=== PATIENT | male | born 1980 | race Caucasian/White ===

== ENCOUNTER 2021-11-04 09:51 | Emergency (ER) | payer OTHER, SELFPAY ==
[2021-11-04 09:52] VITALS: BP 169/123; PULSE 80; RESP 18; TEMP 35.8; O2SAT 99
[2021-11-04 10:15] LABS: Basophils Percent Auto 0.5 % (0.2-1.2); Eosinophils Absolute Auto 0.7 K/mm3 (0-0.3); Eosinophils Percent Auto 11.6 % (0-4.4); Hematocrit 46.8 % (42.0-52.0); Hemoglobin 16.8 g/dL (14.0-18.0); Immature Granulocyte Absolute 0.02 K/mm3 (0.00-0.031); Immature Granulocyte Percent A 0.3 % (0-0.5); Lymphocytes Percent Auto 23.5 % (18.3-44.2); Mean Corpuscular HGB Conc 35.9 g/dl (32-36); Mean Corpuscular Hemoglobin 33.9 pg (26-34); Mean Corpuscular Volume 94.5 fl (80-100); Mean Platelet Volume 8.8 fl (7.4-10.4); Monocytes Absolute Auto 0.6 K/mm3 (0.1-0.6); Monocytes Percent Auto 9.7 % (2.6-8.5); Neutrophils Absolute Auto 3.3 K/mm3 (1.3-6.7); Neutrophils Percent Auto 54.4 % (45.5-73.1); Platelet Count Result 368 k/mm3 (150-375); Red Blood Count 4.95 M/mm3 (4.6-6.20); Red Cell Distribution Width 11.5 % (11.5-14.5)
[2021-11-04 10:25] LABS: Appearance Urine Clear (Clear); Bilirubin Urine Negative (Negative); Blood Urine Negative (Negative); Color Urine Yellow (Yellow); Glucose Urine UA Negative (Negative); Ketones Urine Negative (Negative); Leukocyte Esterase Ur Negative LEU/UL (Negative); Nitrate Urine Negative (Negative); Protein Urine Negative (Negative); Urobilinogen Urine 0.2 mg/dL (<2.0); pH Urine 8.5 (5.0-9.0)
--- NOTE | 2021-11-04 10:26 | ED.ABDPAIN ---
HPI - Abdominal Pain General Chief Complaint: Abdominal Pain Stated Complaint: Abdominal Pain Time Seen by Provider: 11/04/21 10:03 Source: patient Mode of arrival: ambulatory Limitations: no limitations History of Present Illness HPI narrative: 41-year-old male presented to the emergency department for evaluation of epigastric and mid abdominal pain. Patient states the pain started this morning when he woke up. Patient denies any significant past medical history. Patient denies any prior history of abdominal surgeries. Patient denies any history of GERD. Patient states last night that he did drink half pint of vodka and this is not a usual thing for him. Patient denies any heavy use of NSAIDs but states he did take ibuprofen this morning. Patient does report nausea with no associated vomiting. Patient states he attempted to vomit and was unsuccessful. States he does have history of hypertension for but denies needing any medications for this. Patient states he does have follow-up with his primary care physician every 6 months. Related Data Allergies Allergy/AdvReac Type Severity Reaction Status Date / Time No Known Allergies Allergy Mild Verified 11/04/21 10:14 Review of Systems Review of Systems: CONSTITUTIONAL: Denies fever, chills, or sweats. EYES: Denies visual changes, redness, or discharge. ENT: Denies rhinorrhea, congestion, sore throat, or otalgia. CARDIOVASCULAR: Denies chest pain, palpitations, or edema. RESPIRATORY: Denies cough or dyspnea. GASTROINTESTINAL: See HPI GENITOURINARY: Denies dysuria or hematuria. SKIN: Denies rash or itching. MUSCULOSKELETAL: Denies back pain, joint pain, or myalgia. NEUROLOGIC: Denies headache, numbness, or weakness. Exam Narrative: APPEARANCE: Well appearing, no pain, no distress, well-nourished. HEAD: normocephalic, atraumatic. EYES: PERRLA/EOMI, conjunctivae clear. NOSE: Normal no drainage NECK: Supple. No adenopathy, no masses. RESPIRATORY: Airway patent, respirations nonlabored. Clear to auscultation bilaterally, no rales, rhonchi, wheezing. CARDIOVASCULAR: Regular rate and rhythm without murmurs rubs or gallops. ABDOMINAL: Soft, nondistended, normal bowel sounds, epigastric tenderness to palpation MUSCULOSKELETAL: Moves all extremities. Strength/ROM intact, No edema, No calf tenderness. NEURO: Alert. Cranial nerves II through XII intact. Grossly intact SKIN: Warm, dry. Normal Color Course Course Emergency Course: Patient did feel significantly improved after the GI cocktail. Patient's labs are within normal limits. Patient was updated on the treatment plan for home. Suspect gastritis due to his alcohol consumption. Patient will be started on omeprazole. Patient was also educated on reasons to return to the emergency room and on the importance of close follow-up with his primary care physician. Vital Signs Vital signs: Vital Signs Temperature 96.5 F L 11/04/21 09:52 Pulse Rate 80 11/04/21 09:52 Respiratory Rate 18 11/04/21 09:52 Blood Pressure 169/123 H 11/04/21 09:52 Pulse Oximetry 99 11/04/21 09:52 Temperature 96.5 F L 11/04/21 09:52 Pulse Rate 80 11/04/21 09:52 Respiratory Rate 18 11/04/21 09:52 Blood Pressure 169/123 H 11/04/21 09:52 Pulse Oximetry 99 11/04/21 09:52 MDM - Abdominal Pain Lab Data Attestation: I reviewed the patient's lab results. Result diagrams: 11/04/21 10:11 11/04/21 10:11 Labs: Lab Results 11/04/21 11/04/21 11/04/21 Range/Units 10:11 10:11 10:11 WBC 6.0 (4.5-10.0) K/mm3 RBC 4.95 (4.6-6.20) M/mm3 Hgb 16.8 (14.0-18.0) g/dL Hct 46.8 (42.0-52.0) % MCV 94.5 (80-100) fl MCH 33.9 (26-34) pg MCHC 35.9 (32-36) g/dl RDW 11.5 (11.5-14.5) % Plt Count 368 (150-375) k/mm3 MPV 8.8 (7.4-10.4) fl Immature Gran % (Auto) 0.3 (0-0.5) % Neut % (Auto) 54.4 (45.5-73.1) % Lymph % (Auto) 23.5 (18.3-44.2) % Ce[place] % (Auto)
[2021-11-04 10:28] LABS: Alanine Aminotransferase 80 U/L (4-50); Albumin Level 4.6 g/dL (3.5-5.1); Alkaline Phosphatase 79 U/L (38-126); Anion Gap 8 mmol/L (8-16); Aspartate Amino Transferase 56 U/L (17-59); Bilirubin,Total 0.4 mg/dL (0.2-1.3); Blood Urea Nitrogen 8 mg/dL (9-20); Calcium 9.9 mg/dL (8.4-10.2); Carbon Dioxide 28 mmol/L (22-30); Chloride 101 mmol/L (98-107); Estimated CRCL calculation 99 ml/min; Estimated Glomerular Filt Rate > 60; Glucose 108 mg/dL (65-110); Lipase 38 U/L (23-300); Potassium 4.6 mmol/L (3.4-5.0); Sodium 137 mmol/L (137-145)
[2021-11-04 10:30] LABS: Mucus Urine Rare /lpf; WBC Urine 0-3 /hpf
[2021-11-04 10:31] LABS: Add Urine Microscopic? YES
[2021-11-04] MEDS: PANTOPRAZOLE SODIUM IV 40 MG VIAL IV PUSH ×2 (10:53→12:56)
[2021-11-04] MEDS: ONDANSETRON INJ 4 MG/2 ML VIAL IV PUSH (10:53)
[2021-11-04] MEDS: BELLADONNA ALK/PHENOB ELIX 10 ML, MAG HYDROX/ALUMINUM HYD/SIMETH 30 ML, LIDOCAINE HCL 2... PO (10:54)
== END 2021-11-04 12:57 | disposition home or self-care (01) ==
PROVIDERS: Emergency Provider Emergency Medicine; PCP Emergency Medicine
DX: R10.13 Epigastric pain (principal); I10 Essential (primary) hypertension
CPT/HCPCS: 36415; 80053; 81001; 83605; 83690; 85025; 96374; 96375; 96376; 99284; A9270; C9113; J2405

== ENCOUNTER → 2022-01-19 09:16 | Outpatient (REF) | payer OTHER, SELFPAY | LOC: ANHLAB 09:16 | PROVIDERS: PCP Emergency Medicine; Visit Provider Nurse Practitioner | DX: L57.0 Actinic keratosis (principal) | CPT/HCPCS: 88305 ==